=== PATIENT | female | born 1975 | race Caucasian/White ===

== ENCOUNTER → 2017-11-14 | Outpatient (CLI) | payer MEDICAID | LOC: FIMAGING 16:35 | PROVIDERS: ATTEND Family Medicine | DX: R07.81 Pleurodynia (principal) ==

== ENCOUNTER 2018-01-07 12:25 | Emergency (ER) | payer MEDICAID ==
--- NOTE | 2018-01-07 13:09 | EDPHY ---
HPI/HX/ROS/PE/MDM Narrative: CHIEF COMPLAINT: Headache, neck and back pain HPI: The patient is a 42 y/o female with a history of chronic pain, migraines, and arthritis complaining of a worsening headache, blurry vision, as well as neck and shoulder swelling and pain for two weeks. On , 3 days ago, she had lidocaine trigger point injections in her neck and back preformed at [facility]. Following the injections, she was sore and swollen at the place where injections were preformed. The pain and swelling is still at the injection sites and she is now having general pain throughout her body. In addition to the injection site pain she has had a worsening headache which has been present for at least two weeks and is similar to prior headaches.The headache is exacerbated when changing positions or standing. Lidocaine patches, Excedrin, Sumatriptan, Celebrex, and Nucynta did not alleviate her headache or body pain. On Monday, she became nauseous and started vomiting, Zofran did not alleviate the nausea. Denies chest pain, shortness of breath, abdominal pain, urinary or bowel complaints, fever, numbness, paresthesias. REVIEW OF SYSTEMS: Aside from elements discussed in the HPI, a comprehensive 10-point review of systems was reviewed and is negative. PMH: Chronic pain, arthritis, migraines SOCIAL HISTORY: Lives in [facility], single, not employed, PCP: Dr. Angelica Hines PHYSICAL EXAM: General: Patient is alert, sitting in a dark room, in no acute distress. ENT: Eyes are normal to inspection. ENT inspection normal. Neck: Normal inspection. Full range of motion. Respiratory: No respiratory distress. Breath sounds normal bilaterally. Cardiovascular: Regular rate and rhythm. Strong peripheral pulses. Normal cap refill. Abdomen: The abdomen is nontender to palpation. There are no peritoneal signs. There are normal bowel sounds. Back: Multiple puncture sites on back consistent with needling that are not infected. No tenderness to palpation. Skin: Normal color. No rash. Warm and dry. Extremities: Normal appearance. Full range of motion. Neuro: Oriented x3. Normal motor function. Normal sensory function. Psych: Rapid, pressured speech ED Course: 1415: I have discussed Migraine cocktail. Patient is requesting only Reglan, Toradol, Zofran, and IV fluids. 1627: Reassessed patient, she is feeling better after 30mg IV Toradol, 10mg IV Reglan, 4mg IV Zofran, and 1L IV NS. Return precautions provided; patient is comfortable with this plan. MDM: This is a chronic pain patient who has recently established care with a local heel painter. She has multiple complaints related to pain which seem to focus on a headache that has been present for several weeks and is of typical nature, diffuse body aches and pain at the site of trigger point injections. Her physicians have already prescribed her a large array of various pain medications. I see no red flags for serious intracranial pathology such as SAH, tumor, CVA or meningitis, so no LP or imaging is indicated at this time. Patient looks extremely well and has a normal exam, notable only for rapid tangential and somewhat pressured speech. She was treated with IV NS, metoclopramide. She declines steroids or muscle relaxants. This improved her symptoms somewhat. Given that she is being managed by pain management, I think it would be unwise to provide narcotic pain medication and so this was not offered. Patient will follow-up with her physician in the morning. We discussed strict return precautions. - Data Points Laboratory Results: Laboratory Results 01/07/18 14:40 01/07/18 01/07/18 01/07/18 14:40 14:40 14:40 Hct 40.2 % % (38.0-47.0) ESR 2 MM/HR MM/HR (0-20) C-Reactive Protein 6.1 mg/L mg/L (<10.0) PAULA Screen Pending Medications Given: Discontinued Medications Sodium Chloride (Ns) 1,000 mls @ 0 mls/hr IV ONCE ONE; Wide Open PRN Reason: Protocol Stop: 01/07/18 14:16 Last Admin: 01/07/18 14:40 Dose: 1,000 mls Ketorolac Tromethamine (Toradol) 30 mg IVP EDNOW ONE Stop: 01/07/18 14:16 Last Admin: 01/07/18 14:39 Dose: 30 mg Metoclopramide HCl (Reglan Injection) 10 mg IVP EDNOW ONE Stop: 01/07/18 14:16 Last Admin: 01/07/18 14:40 Dose: 10 mg Ondansetron HCl (Zofran) 4 mg IVP EDNOW ONE Stop: 01/07/18 14:16 Last Admin: 01/07/18 14:39 Dose: 4 mg General Time Seen by Provider: 01/07/18 13:07 Initial Vital Signs: Initial Vital Signs Temperature (C) 36.7 C 01/07/18 12:33 Heart Rate 82 01/07/18 12:33 Respiratory Rate 18 01/07/18 12:33 Blood Pressure 146/113 H 01/07/18 12:33 O2 Sat (%) 99 01/07/18 12:33 O2 Delivery Mode Room Air Allergies/Adverse Reactions: amoxicillin [From Augmentin] Allergy (Verified 01/07/18 12:28) clavulanic acid [From Augmentin] Allergy (Verified 01/07/18 12:28) Sulfa (Sulfonamide Antibiotics) Allergy (Verified 01/07/18 12:28) tuna oil Allergy (Verified 01/07/18 12:28) Home Medications: Medication Instructions Recorded Adderall 10 MG (*) 01/07/18 Afrin Nasal [place] 01/07/18 CeleBREX 01/07/18 Cetirizine 01/07/18 Cyclobenzaprine 01/07/18 Diclofenac 0.1% 01/07/18 Flonase Allergy Relief 01/07/18 IMITREX 01/07/18 Iron 01/07/18 Loratadine 01/07/18 Losartan Potassium 01/07/18 Nasocort 01/07/18 Nucynta 01/07/18 Ondansetron 01/07/18 Plaquenil 200 mg (*) 01/07/18 Propranolol HCl 01/07/18 Provigil 01/07/18 Sudafed 12 Hour 01/07/18 TYLENOL #3 01/07/18 busPIRone 01/07/18 Departure - Departure Disposition: Home, Routine, Self-Care Clinical Impression: Headache, Chronic pain Condition: Good Instructions: Migraine Headache (ED), Chronic Pain (ED), General Headache (ED) Additional Instructions: Follow-up with your primary care physician within 72 hours. Return to the emergency department for recurrence of headache, nausea, vomiting, numbness, weakness, neck pain, fever or other concerns. Use Tylenol and/or ibuprofen as directed. Referrals: Angelica Hines MD [Primary Care Provider] - As per Instructions Report Scribed for: Power Herrera Report Scribed by: Patricia Arenas Date of Report: 01/07/18 Time of Report: 13:09 Physician Review and Approval Statement: Portions of this note were transcribed by an ED scribe. I personally performed the history, physical exam, and medical decision making; and confirm the accuracy of the information in the transcribed note.
[2018-01-07] MEDS ORDERED: METOCLOPRAMIDE 10 MG/2 ML VIAL IVP ONE (14:15)
[2018-01-07] MEDS ORDERED: KETOROLAC 30 MG/1 ML SDV IVP ONE (14:15)
[2018-01-07] MEDS ORDERED: ONDANSETRON 4 MG/2 ML VIAL IVP ONE (14:15)
[2018-01-07] MEDS ORDERED: NS 1,000 ML IV ONE (14:15)
[2018-01-07 16:39] VITALS: BP 122/80
== END 2018-01-07 16:46 | disposition home or self-care (01) ==
DX: R51 Headache (principal); E86.9 Volume depletion, unspecified
CPT/HCPCS: 96374; J1885; J2405; J2765

== ENCOUNTER 2018-01-26 08:15 | Emergency (ER) | payer MEDICAID ==
[2018-01-26] MEDS ORDERED: HALOPERIDOL LACT 5 MG/ML INJ IVP ONE (09:10)
[2018-01-26] MEDS ORDERED: DEXAMETHASONE 4 MG/ML VIAL IVP ONE (09:10)
[2018-01-26] MEDS ORDERED: KETOROLAC 15 MG/1 ML SDV IVP ONE (09:11)
[2018-01-26] MEDS ORDERED: NS 1,000 ML IV ONE (09:11)
[2018-01-26] MEDS ORDERED: METOCLOPRAMIDE 10 MG/2 ML VIAL IVP ONE (09:11)
--- NOTE | 2018-01-26 09:33 | EDPHY ---
H & P Stated Complaint: migraine/rash at spine/chronic pain Time Seen by Provider: 01/26/18 08:53 HPI/ROS: CHIEF COMPLAINT: Headache since January 04 HISTORY OF PRESENT ILLNESS: 42-year-old female with history of chronic pain, chronic migraine, arthritis, seen in early January at the [facility] where she had lidocaine trigger-point injections notes that she has been experiencing chronic headache ever since. She was seen in the ER few days later however states that she continues to experience pain described as bifrontal and retro-orbital with associated photophobia, audio phobia. No nausea. No vomiting. No gait instability. She was able take the bus to the ER. No gait instability. Feels similar to her chronic migraine. No trauma. No fall. Patient would also like me to evaluate a rash which has been present since early January. PRIMARY CARE PROVIDER: REVIEW OF SYSTEMS: A ten point review of systems was performed and is negative with the exception of the items mentioned in the HPI PAST MEDICAL & SURGICAL HISTORY: Chronic headache. Chronic pain. Arthritis. Delayed sleep phase disorder SOCIAL HISTORY: Nonsmoker. No drug use. PHYSICAL EXAM (Prior to examination, patient consented to physical exam, hands were washed and my usual and customary physical exam procedures followed) 1) GENERAL: Well-developed, well-nourished, alert and oriented. Sitting in a darkened room with sunglasses on.. 2) HEAD: Normocephalic, atraumatic 3) HEENT: Pupils equal, round, reactive to light bilaterally. Sclera anicteric. No injection. Positive photophobia Nasopharynx, oropharynx, clear, no lesions. Ears bilaterally with normal tympanic membranes. 4) NECK: Full range of motion, no meningeal signs. On the posterior aspect of the patient's neck bilaterally she has papular nonvesicular erythema, nontender non excoriated non weeping non indurated. 5) LUNGS: Clear auscultation bilaterally, no wheezes, no rhonchi, no retractions. 6) HEART: Regular rate and rhythm, no murmur, no heave, no gallop. 7) ABDOMEN: No guarding, no rebound, no focal tenderness, negative McBurney's, negative Jefferson's, negative Rovsing's, negative peritoneal sign, 8) MUSCULOSKELETAL: Moving all extremities, no focal areas of tenderness, no obvious trauma. No peripheral edema or discoloration. 9) BACK: No CVA tenderness, no midline vertebral tenderness, no fluctuance, no step-off, no obvious trauma, no visual or palpable abnormality. 10) SKIN: No rash, no petechiae. 11) Psychiatric: Patient is oriented X 3, there is no agitation. 12) NEURO: Awake, alert, and oriented to person, place and time. Answers questions appropriately. There were no obvious focal neurologic abnormalities. No cerebellar dysfunction. Cranial nerves 2 through to 12 intact. Normal steady gait. Upper and lower extremities bilaterally with strength 5 / 5, reflexes 2+. DIFFERENTIAL DIAGNOSIS: In no particular order, including but not limited to subarachnoid hemorrhage, migraine headache, tension headache and infectious causes such as meningitis, pharyngitis and sinusitis. The patient understands that this diagnosis is provisional and can never be 100% accurate. Usual and customary warnings were given concerning the clinical impression and all the patient's questions were answered. The patient was instructed to return to the emergency department should her symptoms worsen or return, or develop any new symptoms, otherwise to followup as directed in discharge instructions. This is a partial list of diagnoses considered. These considerations are based on history, physical exam, past history and reassessment. - Personal History LMP (Females 10-55): Now Current Tetanus Diphtheria and Acellular Pertussis (TDAP): Unsure - Medical/Surgical History Hx Asthma: No Hx Chronic Respiratory Disease: No Hx Diabetes: No Hx Cardiac Disease: No Hx Renal Disease: No Hx Cirrhosis: No Hx Alcoholism: No Hx HIV/AIDS: No Hx Splenectomy or Spleen Trauma: No Other PMH: CHRONIC PAIN/ARTHRITIS/MIGRAINES - Social History Smoking Status: Current some day smoker Constitutional: Initial Vital Signs Temperature (C) 36.5 C 01/26/18 08:18 Heart Rate 90 01/26/18 08:18 Respiratory Rate 18 01/26/18 08:18 Blood Pressure 134/99 H 01/26/18 08:18 O2 Sat (%) 96 01/26/18 08:18 O2 Delivery Mode Room Air Allergies/Adverse Reactions: amoxicillin [From Augmentin] Allergy (Verified 01/26/18 08:16) clavulanic acid [From Augmentin] Allergy (Verified 01/26/18 08:16) Sulfa (Sulfonamide Antibiotics) Allergy (Verified 01/26/18 08:16) tuna oil Allergy (Verified 01/26/18 08:16) Home Medications: Medication Instructions Recorded Adderall 10 MG (*) 01/07/18 Afrin Nasal [place] 01/07/18 CeleBREX 01/07/18 Cetirizine 01/07/18 Cyclobenzaprine 01/07/18 Diclofenac 0.1% 01/07/18 Flonase Allergy Relief 01/07/18 IMITREX 01/07/18 Iron 01/07/18 Loratadine 01/07/18 Losartan Potassium 01/07/18 Nasocort 01/07/18 Nucynta 01/07/18 Ondansetron 01/07/18 Plaquenil 200 mg (*) 01/07/18 Propranolol HCl 01/07/18 Provigil 01/07/18 Sudafed 12 Hour 01/07/18 TYLENOL #3 01/07/18 busPIRone 01/07/18 Adderall 10 MG (*) 01/26/18 Medical Decision Making ED Course/Re-evaluation: 9:00 a.m.: I reviewed this patient's old medical records. At this time she has a nonfocal exam notes a history of chronic headache and current headache which feels similar to her usual headache. At this time I do not think that emergent imaging studies are indicated. Plan will be supportive care and discharge with referral information as she currently does not have a primary care provider. Regarding patient's neck rash which has been present for several weeks I think that this less than likely represents zoster infectious etiology, may be secondary to contact dermatitis given the distribution. Care of patient under supervision of secondary supervising physician Dr Herrera with whom I discussed case. 11:18 a.m.: Re-evaluation after multiple medications. This time she is feeling improvement but notes continued pain. I have offered further medication however she states that she has not want any medication that will cause her further somnolence. She has already been given Toradol and other medications from this point forward would more than likely cause further somnolence. Plan will therefore be discharge . she feels comfortable being discharged. All questions and concerns addressed by myself. Usual and customary headache precautions and instructions provided. - Data Points Medications Given: Discontinued Medications Dexamethasone (Decadron Injection) 10 mg IVP EDNOW ONE Stop: 01/26/18 09:11 Last Admin: 01/26/18 09:30 Dose: 10 mg Haloperidol Lactate (Haldol Injection) 2.5 mg IVP EDNOW ONE Stop: 01/26/18 09:11 Last Admin: 01/26/18 09:50 Dose: 2.5 mg Sodium Chloride (Ns) 1,000 mls @ 0 mls/hr IV ONCE ONE PRN Reason: Wide Open Stop: 01/26/18 09:12 Last Admin: 01/26/18 09:28 Dose: 1,000 mls Ketorolac Tromethamine (Toradol) 15 mg IVP EDNOW ONE Stop: 01/26/18 09:12 Last Admin: 01/26/18 09:30 Dose: 15 mg Metoclopramide HCl (Reglan Injection) 10 mg IVP EDNOW ONE Stop: 01/26/18 09:12 Last Admin: 01/26/18 09:31 Dose: 10 mg Departure - Departure Disposition: Home, Routine, Self-Care Clinical Impression: Headache Qualifiers: Headache type: other headache syndrome Qualified Code(s): G44.89 - Other headache syndrome Condition: Good Instructions: Migraine Headache (ED) Additional Instructions: RETURN TO THE ED IMMEDIATELY IF YOUR HEADACHE WORSENS, IF YOU DEVELOP A FEVER, NECK PAIN OR NECK STIFFNESS, OR IF YOU BECOME CONFUSED OR ABNORMALLY DROWSY. Referrals: Per Pizano DO [Medical Doctor] - 5-7 days, call for appt. (Dr. Per Pizano is a neurologist)
[2018-01-26 11:55] VITALS: BP 126/73
--- NOTE | 2018-01-26 18:45 | ASDISCHSUM ---
Discharge Information Plan Status:Home with No Needs Medically Cleared to Leave: Discharge Date:01/26/2018 11:53 AM CM D/C Disposition:Home, Routine, Self-Care ADT D/C Disposition:Home, Routine, Self-Care Projected Discharge Date:01/26/2018 11:53 AM Transportation at D/C:None or Unknown Discharge Delay Reason: Follow-Up Date:01/26/2018 11:53 AM Discharge Slot: Final Diagnosis: Placement Information Patient Contact Information Contact Name:AIMEE Relationship: Address: Work Phone: City: [facility] Phone: State/[place] Code: Email: Financial Information Financial Class:Medicaid Primary Plan Desc:MEDICAID HEALTH FIRST [employer] Primary Plan Number:[id number] Secondary Plan Desc: Secondary Plan Number: Assessment Information Intervention Information Intervention Type:Community Resources Date of Service:01/26/2018 06:43 PM Patient Type:Emergency Room Staff Member:BLANCA Castrejon [place] Hours:0.25 Discipline:Orthotic Practitioner Severity: Comment: Intervention Type:Health Clinic Date of Service:01/26/2018 06:43 PM Patient Type:Emergency Room Staff Member:BLANCA Castrejon [place] Hours:0.25 Discipline:Orthotic Practitioner Severity: Comment:
== END 2018-01-26 11:53 | disposition home or self-care (01) ==
DX: G44.89 Other headache syndrome (principal); F17.200 Nicotine dependence, unspecified, uncomplicated; E86.9 Volume depletion, unspecified
CPT/HCPCS: 96374; J1100; J1630; J1885; J2765

== ENCOUNTER 2018-01-26 17:40 | Emergency (ER) | payer MEDICAID ==
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
[2018-01-26] MEDS ORDERED: NS 1,000 ML IV ONE (18:57)
[2018-01-26] MEDS ORDERED: DEXAMETHASONE 10 MG/ML VIAL IVP ONE (18:57)
[2018-01-26] MEDS ORDERED: KETOROLAC 15 MG/1 ML SDV IVP ONE (18:57)
[2018-01-26] MEDS ORDERED: DIAZEPAM 5 MG/ML 1 ML SYR IVP ONE (18:57)
[2018-01-26 20:36] VITALS: BP 172/120
== END 2018-01-26 20:35 | disposition home or self-care (01) ==
DX: S29.9XXA Unspecified injury of thorax, initial encounter (principal); S19.9XXA Unspecified injury of neck, initial encounter; G43.409 Hemiplegic migraine, not intractable, without status migrainosus; M60.9 Myositis, unspecified; F17.200 Nicotine dependence, unspecified, uncomplicated; E86.9 Volume depletion, unspecified; V18.2XXA Unspecified pedal cyclist injured in noncollision transport accident in nontraffic accident, initial encounter
CPT/HCPCS: 96374; J1100; J1630; J1885; J2765; J3360